=== PATIENT | male | born 1995 | race African-American/Black ===

== ENCOUNTER 2020-10-31 12:44 | Emergency (ER) | payer SELFPAY ==
[~2020-10-31] VITALS: Ht 185.4 cm; Wt 99.0 kg
[2020-10-31] MEDS ORDERED: ONDANSETRON HCL 4MG/2ML INJ IV STA (13:39)
[2020-10-31] MEDS ORDERED: FAMOTIDINE 20MG/2ML VIAL IV ONE (13:45)
[2020-10-31] MEDS ORDERED: SODIUM CHLORIDE 0.9% 1,000 ML IV ONE (13:45)
[2020-10-31 14:27] LABS: HEMATOCRIT. 44.6 % (42.0-52.0); HEMOGLOBIN. 15.5 g/dL (14.0-18.0); MEAN CORPUSCULAR HEMOGLOBIN 30.5 pg (28.0-32.0); MEAN CORPUSCULAR VOLUME 87.8 fL (80.0-94.0); MEAN PLATELET VOLUME 9.7 fl (7.4-10.4); PLATELET 197 x1000/uL (130-400); RED BLOOD CELL COUNT 5.08 mill/uL (4.7-6.1); RED CELL DISTRIBUTION WIDTH 12.3 % (11.6-14.6)
[2020-10-31 14:33] LABS: CHLORIDE 105 mEq/L (98-107)
[2020-10-31 14:37] LABS: ETHANOL BLOOD < 10 mg/dL
[2020-10-31 14:55] LABS: PLATELET ESTIMATE NORMAL
[2020-10-31] MEDS ORDERED: ONDA4TAB5 MT (15:39)
[2020-10-31 17:44] VITALS: BP 139/65
== END 2020-10-31 17:45 | disposition home or self-care (01) ==
LOC: ER 13:56
DX: R10.13 Epigastric pain (principal); B02.21 Postherpetic geniculate ganglionitis; G51.0 Bell's palsy
CPT/HCPCS: 36415; 71045; 80053; 80320; 83690; 85025; 93005; 96361; 96374; 96375; 99285; J2405; J3490; J7030; Z7610; G0480